=== PATIENT | male | born 1965 | race Caucasian/White ===

== ENCOUNTER 2017-07-02 15:00 | Emergency (ER) | payer MEDICAID ==
[~2017-07-02] VITALS: Ht 177.8 cm; Wt 100.0 kg
[~2017-07-02 15:00] MED LIST: TRAM50TA2 PO
[2017-07-02 15:55] LABS: BASOPHILS # (AUTO) 0.1 X10'3 (0-0.2); BASOPHILS % (AUTO) 0.6 % (0-1); EOSINOPHILS # (AUTO) 0.3 X10'3 (0-0.9); EOSINOPHILS % (AUTO) 2.3 % (0-6); HEMATOCRIT 44.2 % (42.0-52.0); HEMOGLOBIN 15.1 g/dl (14.0-17.9); LYMPHOCYTES # (AUTO) 3.5 X10'3 (1.1-4.8); LYMPHOCYTES % (AUTO) 30.9 % (21-51); MEAN CORPUSCULAR HEMOGLOBIN 28.9 PG (27.0-31.0); MEAN CORPUSCULAR HGB CONC 34.3 % (33.0-36.5); MEAN CORPUSCULAR VOLUME 84.3 FL (78-98); MEAN PLATELET VOLUME 8.4 FL (7.4-10.4); MONOCYTES # (AUTO) 0.8 X10'3 (0-0.9); MONOCYTES % (AUTO) 7.1 % (2-12); NEUTROPHILS # (AUTO) 6.6 X10'3 (1.8-7.7); NEUTROPHILS % (AUTO) 59.1 % (42-75); PLATELET COUNT 335 X10'3 (140-440); RED BLOOD COUNT 5.24 X10'6 (4.70-6.10); RED CELL DISTRIBUTION WIDTH 13.4 % (11.5-14.5); WHITE BLOOD COUNT 11.2 X10'3 (4.5-11.0)
[2017-07-02 16:07] LABS: ALANINE AMINOTRANSFERASE 89 U/L (12-78); ALBUMIN 3.7 G/DL (3.4-5.0); ALKALINE PHOSPHATASE 81 IU/L (46-116); ANION GAP 9 (8-16); ASPARTATE AMINO TRANSFERASE 53 U/L (10-37); BILIRUBIN,TOTAL 0.5 MG/DL (0.1-1.0); BLOOD UREA NITROGEN 15 MG/DL (7-18); BUN/CREATININE RATIO 13.8 (5.4-32.0); CHLORIDE 105 MMOL/L (99-107); CREATININE 1.09 MG/DL (0.60-1.10); GLUCOSE 99 MG/DL (70-104); POTASSIUM 3.6 MMOL/L (3.5-5.1); SODIUM 144 MMOL/L (135-145); TOTAL CARBON DIOXIDE 30.3 MMOL/L (24-32); TOTAL PROTEIN 7.4 G/DL (6.4-8.2); eGFR 71 ML/MIN
[2017-07-02 16:16] LABS: ETHANOL < 0.010 GM/DL (0.0-0.010)
[2017-07-02 16:52] LABS: CLARITY,URINE Cloudy (Clear); COLOR,URINE Yellow (Yellow); GLUCOSE, URINE Negative (Neg); KETONES,URINE Negative (Neg); LEUKOCYTE ESTERASE ,URINE Trace (Neg); NITRITES, URINE Negative (Neg); OCCULT BLOOD,URINE Negative (Neg); PH,URINE 7.5 (4.8-8.0); PROTEIN,URINE Negative (Neg)
[2017-07-02 16:58] LABS: UA COLLECTION TYPE CLN CATCH MIDSTREAM
[2017-07-02 16:59] LABS: AMORPHOUS PHOSPHATES 1+; BACTERIA,URINE NONE SEEN /HPF (Neg); MUCUS STRANDS NONE SEEN /LPF (Neg); RBC,URINE NONE SEEN /HPF (0-2); SQUAMOUS EPITHELIAL CELL,UR FEW /LPF (FEW); WBC,URINE 0-4 /HPF (0-4)
[2017-07-02 17:02] LABS: URINE AMPHETAMINE SCREEN NEGATIVE (Neg); URINE BARBITUATE SCREEN NEGATIVE (Neg); URINE BENZODIAZEPINES SCREEN NEGATIVE (Neg); URINE CANNABINOID SCREEN NEGATIVE (Neg); URINE COCAINE SCREEN NEGATIVE (Neg); URINE METHADONE SCREEN NEGATIVE (Neg); URINE OPIATE SCREEN NEGATIVE (Neg); URINE PHENCYCLIDINE SCREEN NEGATIVE (Neg)
[2017-07-02] MEDS ORDERED: LORazepam 2 mg/ml vial IM PRN (23:15)
[2017-07-02] MEDS ORDERED: haloperidol lactate 5mg/ml inj IM PRN (23:15)
[2017-07-03] MEDS: ibuprofen tablet 400 MG TABLET PO PRN ×3 (00:22→20:36)
[2017-07-03] MEDS ORDERED: hydrOXYzine 25 MG tablet PO PRN (11:25)
[2017-07-03] MEDS ORDERED: ZOLP10TA5 PO (11:37)
[2017-07-03] MEDS ORDERED: CLON-527 PO (11:37)
[2017-07-03] MEDS ORDERED: CARI350T PO (11:37)
[2017-07-03] MEDS ORDERED: BUPR8TAB4 SL (11:37)
[2017-07-03] MEDS ORDERED: TOPI50TA PO (11:37)
[2017-07-03] MEDS ORDERED: BUPR150T8 PO (11:37)
[2017-07-03] MEDS: lamoTRIgine 25mg tablet PO SCH (20:37)
[2017-07-04] MEDS: LORazepam 1 MG tablet PO PRN (15:55)
[2017-07-04] MEDS ORDERED: haloperidol 5mg tablet PO PRN (18:15)
[2017-07-04] MEDS: lamoTRIgine 25mg tablet PO SCH (20:06)
[2017-07-05] MEDS: LORazepam 1 MG tablet PO PRN ×3 (08:56→22:14)
[2017-07-05] MEDS: lamoTRIgine 25mg tablet PO SCH (20:07)
[2017-07-06 06:09] VITALS: BP 126/85
[2017-07-06] MEDS: LORazepam 1 MG tablet PO PRN (07:19)
== END 2017-07-06 15:49 ==
LOC: ER 15:01
DX: R45.851 Suicidal ideations (principal); I10 Essential (primary) hypertension; F41.9 Anxiety disorder, unspecified; F31.9 Bipolar disorder, unspecified; Z87.442 Personal history of urinary calculi
CPT/HCPCS: 36415; 80053; 80305; 80320; 81001; 84443; 85025; 96372; 99285; J2060; Q0177